=== PATIENT | female | born 1975 | race Caucasian/White ===

== ENCOUNTER 2018-07-29 12:37 | Emergency (ER) | payer SELFPAY ==
[~2018-07-29] VITALS: Ht 162.6 cm; Wt 79.4 kg
[2018-07-29 13:00] VITALS: BP 146/58
--- NOTE | 2018-07-29 13:09 | NUR ---
PT TRIAGED AND SENT TO [facility].
--- NOTE | 2018-07-29 15:15 | NUR ---
PATIENT LEFT WITHOUT BEING SEEN BY DR. PARHAM. NO FURTHER CARE PROVIDED FOR PATIENT. PT CALLED AT 1515, 1532, 1543.
== END 2018-07-29 15:15 | disposition left against medical advice (07) ==
LOC: MED 12:37
DX: R07.0 Pain in throat (principal); Z53.21 Procedure and treatment not carried out due to patient leaving prior to being seen by health care provider